=== PATIENT | female | born 1975 | race Hispanic/Latino ===

== ENCOUNTER → 2016-10-21 | Outpatient (CLI) | payer OTHER ==
--- NOTE | 2016-10-21 12:54 | REP ---
MRI LUMBAR SPINE WITHOUT CONTRAST: 10/21/2016 CLINICAL HISTORY: Back pain, lumbar spondylosis. Bilateral leg pain. COMPARISON: 05/09/2016, 09/03/2015. TECHNIQUE: Axial T1, T2 sequences with sagittal T1, T2 and STIR sequences. FINDINGS: Sagittal images show normal lordosis maintained. There is loss of disc water signal and very slight narrowing of the disc space at L2-3. The other disc space heights show mild narrowing and L5-S1, but the disc water signal is maintained. Vertebral body heights and marrow signal are normal from mid body of T11 through S2. The conus terminates at L1. The T11-12, T12-L1 and L1-2 levels show no disc bulge or herniation and no spinal or foraminal stenosis. At L2-3, there is a broad-based disc bulge slightly indenting the ventral thecal sac but not displacing the L3 nerve roots within the canal or the L2 nerve roots in the foramina. No compression of those roots. No central or foraminal stenosis. At L3-4, L4-5 disc levels. There is no bulge or herniation and no spinal or foraminal stenosis. At L5-S1, I see no significant disc bulge or herniation and no spinal or foraminal stenosis. 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 IMPRESSION: 1. Degenerative disc changes at L2-3 with mild broad-based disc bulge not causing any significant spinal or foraminal stenosis. The L3 roots in the canal are not displaced nor the L2 roots in the foramina compressed by this disc bulge. 2. No other spinal or foraminal stenosis or significant disc disease. Stable exam. Signed by Sami Remy MD 10/21/2016 05:58 P
== END ==
LOC: M RAD 11:07
PROVIDERS: ATTEND Neurological Surgery
DX: M47.816 Spondylosis without myelopathy or radiculopathy, lumbar region (principal)

== ENCOUNTER → 2020-10-15 | Outpatient (CLI) | payer SELFPAY | LOC: M LABSMTC 14:04 | PROVIDERS: ATTEND Pediatrics | DX: Z20.822 Contact with and (suspected) exposure to COVID-19 (principal) ==